=== PATIENT | female | born 1940 | race Caucasian/White ===

== ENCOUNTER 2021-12-27 11:06 | Outpatient (RCR) | payer MEDICARE, MEDICAID, SELFPAY ==
--- NOTE | 2021-12-28 08:45 | HP.OTEVAL ---
Patient's Visit Information CATHERINE DIGGS is a 81 year old F, referred to Occupational Therapy by COLIN STAFFORD MD, with a diagnosis of lymphedema. Date of Evaluation: 12/27/21 Occupational Therapist: Elicia Olivas, SIDNEY/Ghulam, CHT - Subjective This 81 year old female was seen for OT eval with dx of LE lymphedema- pt states swelling started April of 2020. Pt states she has tried compression socks but they dig into her ankle and below her knee. pt lives at a [place] facility and she does have someone who wraps her legs but the wraps do slide down her legs. pt states they are using thin edmund wraps but feels if they can use wider edmund wraps they would stay up better- pt does admit since her sister she hasn't been as active- pt is on water pill to help her swelling. pt has assistance with dressing. - Lymphedema (Circumferential Measure) Mid-foot: right 23cm left 22cm Ankle: right 31.5cm left 32cm Lower calf: right 45cm left 45cm Largest calf: right 60cm left 57cm Below knee: right 53cm left 48cm - Lower Limb Functional Index Lower Extremity Functional Score: 24 - Goals Demonstrate a 20% reduction in edema by d/c: Yes Demonstrate adequate knowledge of self-massage by 2nd week: Yes Demonstrate adequate knowledge skin care/prec by 2nd week: Yes Demonstrate adequate knowledge therapeutic exercises by d/c: Yes Select approp compression garment w/donning/care/wear by d/c: Yes Voice need to replace compression garment every 4-6mo by dc: Yes - Rehabilitation General Assessment: pt demo with stage III lymphedema of bilateral LE- pt has fibrosis, alterations in skin character and thickness and hyperpigmentation. pt demo need for skilled OT services to ed. pt in life long mtg of her LE lymphedema. Today therapist ed. pt on lymph stimulation exercises, self lymph massage therapist gave handouts pt demo understanding- therapist ed. pt on why compression socks or Velcro closure compression devices are necessary. Therapist gave information to pt so her family can investigate on what they could afford for her. therapist also ed, pt on ad. devices to assist in applying lotion to her legs. As pt has been struggling with edema for over a year and wrapping and elevation has not been successful pt may benefit form vaso pneumatic device. Rehabilitation Potential: Good - Anticipated Interventions Education re assistive Equipment, Education re Diagnosis, Education re Life-long lymphedema Management, Education re Self-Bandaging Techniques, Education re Skin Care and Precautions, Education re Self Massage Techniques, Education re Correct Donning Tech,Care&Wearing Sched Comp Garments, Home Program - Visit Plan TEXT: Thank you for the opportunity to evaluate your patient. For Medicare and Medicare HMO plans, please review the plan of care and approve it. It will need to be FAXED BACK to us at [phone] for Medicare purposes. Please let me know if there are questions or concerns regarding this plan of care. Physician Signature: Date:
--- NOTE | 2022-03-02 13:35 | HP.OTDCNRP_ITS ---
CATHERINE DIGGS was seen in my office for initial evaluation on 12/27/21. The following Plan of Care was established for this patient: Anticipated Interventions: Education re assistive Equipment, Education re Diagnosis, Education re Life-long lymphedema Management, Education re Self- Bandaging Techniques, Education re Skin Care and Precautions, Education re Self Massage Techniques, Education re Correct Donning Tech,Care&Wearing Sched Comp Garments, Home Program This patient was last seen in our office 12/27/21. Pertinent comments regarding their Occupational therapy will appear below: pt was seen for OT eval and at this time no further apts have been scheduled. Due to time lapse in services pt d/c. At this point I will be discontinuing this patient from occupational therapy. I would be happy to see this patient again in the future if found appropriate by the physician. Thank you! Elicia Olivas, OTR/L, CHT
== END 2021-12-27 19:00 | disposition home or self-care (01) ==
LOC: OT 11:06
PROVIDERS: PCP Family Medicine; Referring Provider Internal Medicine; Visit Provider Internal Medicine
DX: I89.0 Lymphedema, not elsewhere classified (principal)
CPT/HCPCS: 97166; 97530